=== PATIENT | female | born 1990 | race African-American/Black ===

== ENCOUNTER 2017-02-22 12:19 | Outpatient (CLI) | payer OTHER ==
[2017-02-22] MEDS ORDERED: GADOBUTROL 10 MMOL/10 ML SYRINGE IVP ONE (13:48)
--- NOTE | 2017-02-22 21:18 | MRI Preliminary Report ---
Exam: MRI Pelvis W/WO Impression: 1. Bulky, leiomyomatous uterus. Majority of fibroids are vascular demonstrating avid enhancement with largest fibroid at the cervix measuring 11.9 cm. There is associated endometrial and urinary bladder displacement. No intracavitary mass seen. 2. Normal ovaries. SITE ID: [id number]
--- NOTE | 2017-02-22 21:28 | MRI Report ---
EXAM: MRI PELVIS WITHOUT AND WITH CONTRAST EXAM DATE: 02/22/2017 02:10 PM. CLINICAL HISTORY: Leiomyoma of uterus, unspecified. COMPARISON: None. TECHNIQUE: Multiplanar, multisequence T1-weighted and fluid-sensitive sequences of the pelvis before and after administration of intravenous contrast. IV contrast: 7 mm Gadavist. Other: None. FINDINGS: Bulky enlargement of the uterus secondary to numerous fibroids. The uterus measures 20.6 x 13.4 x 12. 9 cm in the sagittal, transverse and AP dimensions. Majority of the fibroids are hypointense on T2-we ighted sequences and demonstrate prominent heterogeneous internal enhancement post gadolinium adminis tration. There is one 3.5 x 2.5 cm anterior lower uterine segment subserosal fibroid demonstrating pr edominantly cystic changes. Additional sales representative fibroids include: 1. Posterior cervical fibroid measuring 11.9 x 7.9 x 10.5 cm. 2. Exophytic right fundal 6.7 x 4.6 x 6.2 cm fibroid. 3. Right lateral intramural uterine body intramural/submucosal 4.2 x 6.1 x 3.3 cm fibroid. 4. At least four left lateral intramural/subserosal fibroids ranging in size from 1.7 to 6 cm. The endometrium is displaced anteriorly and then posteriorly towards the fundus by above fibroids jose suring 12 mm in thickness. No intracavitary mass seen. No junctional zone thickening. The right ovary measures 1.9 x 1.6 x 2.6 cm and contains a simple 1.8 cm cyst. The left ovary measure s 2.5 x 1.4 x 2.0 cm and contains several small follicles. The urinary bladder is compressed anteriorly by the cervix. No pelvic lymphadenopathy. No free fluid collections. No vaginal mass. The visualized bowel, kidneys, and skeletal structures are unremarkable. IMPRESSION: 1. Bulky, leiomyomatous uterus. Majority of fibroids are hypervascular with largest fibroid at the ce rvix measuring 11.9 cm. There is associated endometrial and urinary bladder displacement. No intracav itary mass seen. 2. Normal ovaries. Referring Provider Line: [phone] SITE ID: [id number]
== END 2017-02-22 12:20 | disposition home or self-care (01) ==
LOC: DI 12:19
PROVIDERS: ATTEND Nurse Practitioner Family
DX: D25.1 Intramural leiomyoma of uterus (principal); D25.0 Submucous leiomyoma of uterus; D26.0 Other benign neoplasm of cervix uteri
CPT/HCPCS: 72197; A9585

== ENCOUNTER 2019-10-16 07:48 | Outpatient (CLI) | payer OTHER ==
--- NOTE | 2019-10-16 11:31 | Mammography Report ---
Reason: BI LATERAL BREAST NODULES Procedure Date: 10/16/2019 Accession Number: [id number] / [id number] Procedure: BETTIE - Diagnostic Dig Bilat CPT Code: Final Report FULL RESULT: EXAM: Diagnostic Dig Bilat, Breast Unilateral Complete, Breast Unilateral Complete DATE: 10/16/2019 10:04 AM CLINICAL HISTORY: Bilateral breast nodules felt by clinician on physical examination. COMPARISON: Baseline examination. MAMMOGRAM: TECHNIQUE: (B) - Bilateral CC and MLO views were obtained. PARENCHYMAL PATTERN: (D) - The breasts demonstrate heterogeneously dense fibroglandular parenchyma bilaterally. FINDINGS: There is a dominant mass in each breast on the left 5 to 7:00 position 4 to 6 cm from the nipple and right breast 4:00 position 5 cm from the nipple. There are no suspicious calcifications or areas of distortion. BILATERAL BREAST ULTRASOUND: TECHNIQUE: Real time scanning by the store stock associate with saved static images reviewed. FINDINGS: Left breast 5:00 position 6 cm from the nipple: 1.6 x 0.6 x 1.3 cm well-circumscribed hypoechoic avascular nodule corresponding to the mammographic finding Right breast: 4:00 position 5 cm from the nipple: 1.2 x 0.9 x 0.8 cm well-circumscribed hypoechoic avascular nodule corresponding to the mammographic finding. IMPRESSION: Probably Benign. BI-RADS category 3. Probable solitary fibroadenoma in each breast. RECOMMENDATION: (6MOS) - Recommend 6 month follow-up exam. Suggest six-month follow-up ultrasound of each breast to document stability in the appearance of the presumed fibroadenomas. BI-RADS CATEGORY: (3) - Probably Benign. STANDARD QUALIFYING STATEMENTS: 1. This examination was not reviewed with the aid of Computer-Aided Detection (CAD). 2. A negative or benign imaging report should not preclude biopsy if clinically suspicious findings are present. 3. Dense breasts may obscure an underlying neoplasm. 4. This examination was reviewed with the aid of 3D breast imaging (tomosynthesis).
== END 2019-10-16 07:49 | disposition home or self-care (01) ==
LOC: DI 07:48
PROVIDERS: ATTEND Nurse Practitioner Acute Care
DX: N63.23 Unspecified lump in the left breast, lower outer quadrant (principal); N63.14 Unspecified lump in the right breast, lower inner quadrant
CPT/HCPCS: 76641; 77066

== ENCOUNTER 2020-05-07 07:50 | Outpatient (CLI) | payer OTHER ==
--- NOTE | 2020-05-10 10:34 | Ultrasound Report ---
LIMITED ULTRASOUND OF RIGHT BREAST: 05/07/2020 CLINICAL: Patient returns for a 6 month follow up of bilateral breasts. Comparison: 10/16/2019 Color flow ultrasound of the right breast 4 o'clock region was performed. Carlin scale images of the r eal-time examination were reviewed. There is a 1.1 cm x 0.9 cm x 0.7 cm oval mass with a circumscribed margin in the right breast at 4 o' clock middle depth 5 cm from the nipple. This oval mass is hypoechoic with no posterior acoustic sha dowing or enhancement. This abnormality is not significantly changed. Color flow imaging demonstrat es that there is no vascularity present. IMPRESSION: PROBABLY BENIGN The 1.1 cm x 0.9 cm x 0.7 cm oval mass in the right breast most likely is a fibroadenoma and is proba bg benign. A follow-up right ultrasound in 6 months is recommended to demonstrate stability. Findings and recommendations were conveyed to the patient during today's visit. This exam was interpreted at Station ID: [id number]. Electronically Signed By: Van Adames M.D. aty/:05/07/2020 09:48:50 Ultrasound BI-RADS: 3 Probably benign BI-RADS CATEGORY: (3) - 3 Ultrasound [id number] 6 month follow-up LATERALITY: (R)
--- NOTE | 2020-05-10 10:34 | Ultrasound Report ---
LIMITED ULTRASOUND OF LEFT BREAST: 05/07/2020 CLINICAL: Patient returns for a 6 month follow up of bilateral breasts. No prior exams were available for comparison. Color flow ultrasound of the left breast 5 o'clock region was performed. Carlin scale images of the r eal-time examination were reviewed. There is a 1.8 cm x 1.4 cm x 0.5 cm wider than tall oval mass with a circumscribed margin in the left breast at 5 o'clock middle depth 6 cm from the nipple. This oval mass is hypoechoic with no posteri or acoustic shadowing or enhancement. This abnormality is not significantly changed. Color flow isidro ging demonstrates that there is an adjacent vascularity. IMPRESSION: PROBABLY BENIGN The 1.8 cm x 1.4 cm x 0.5 cm wider than tall oval mass in the left breast most likely is a fibroadeno ma and is probably benign. A follow-up left ultrasound in 6 months is recommended to demonstrate continued stability. Findings and recommendations were conveyed to the patient during today's examination. This exam was interpreted at Station ID: [id number]. Electronically Signed By: Van Adames M.D. aty/:05/07/2020 10:00:06 Ultrasound BI-RADS: 3 Probably benign BI-RADS CATEGORY: (3) - 3 Ultrasound [id number] 6 month follow-up LATERALITY: (L)
== END 2020-05-07 07:51 | disposition home or self-care (01) ==
LOC: DI 07:50
PROVIDERS: ATTEND Nurse Practitioner Acute Care
DX: N63.13 Unspecified lump in the right breast, lower outer quadrant (principal)
CPT/HCPCS: 76642

== ENCOUNTER 2020-11-10 11:45 | Outpatient (CLI) | payer OTHER ==
--- NOTE | 2020-11-11 08:37 | Ultrasound Report ---
LIMITED ULTRASOUND OF RIGHT BREAST: 11/10/2020 CLINICAL: Patient returns for additional imaging over a suspected mass in the right breast. Comparison is made to exam dated: 05/07/2020 ultrasound - [facility]. Color flow and real-time ultrasound of the right breast 4 o'clock region were performed. Carlin scale images of the real-time examination were reviewed. There is a benign 0.8 cm x 0.6 cm x 0.3 cm oval cyst with a smooth internal wall in the right breast at 4 o'clock middle depth 5 cm from the nipple. This oval cyst is anechoic. This abnormality is dec reased in size. Color flow imaging demonstrates that there is no vascularity present. IMPRESSION: BENIGN There is no sonographic evidence of malignancy. The 0.8 cm x 0.6 cm x 0.3 cm oval cyst in the right breast is consistent with a simple cyst and is be nign. No further follow up of the right breast is warranted at this time. This exam was interpreted at Station ID: [id number]. Electronically Signed By: Diane mosley/:11/10/2020 13:46:33 Ultrasound BI-RADS: 2 Benign BI-RADS CATEGORY: (2) - 2 Unspecified - other recall n/a LATERALITY: (B)
--- NOTE | 2020-11-11 08:37 | Ultrasound Report ---
LIMITED ULTRASOUND OF LEFT BREAST: 11/10/2020 CLINICAL: Patient returns for additional imaging over a suspected mass in the left breast. Comparison is made to exams dated: 05/07/2020 ultrasound and 05/07/2020 ultrasound - [facility]. Color flow and real-time ultrasound of the left breast 5 o'clock region were performed. Carlin scale images of the real-time examination were reviewed. There is a 1.8 cm x 1.5 cm x 0.6 cm oval probable fibroadenoma with a circumscribed, minimally lobula christiano margin in the left breast at 5 o'clock middle depth 6 cm from the nipple. This abnormality is no t significantly changed. Color flow imaging demonstrates that there is no vascularity present. IMPRESSION: PROBABLY BENIGN The 1.8 cm oval mass, probale fibroadenoma in the left breast remains relatively stable and is probab ly benign. A follow-up ultrasound in 6 months is recommended to demonstrate continued stability. Findings and recommendations were conveyed to the patient at time of exam. This exam was interpreted at Station ID: [id number]. Electronically Signed By: Diane mosley/:11/10/2020 13:49:06 Ultrasound BI-RADS: 3 Probably benign BI-RADS CATEGORY: (3) - 3 Mammogram [id number] 6 month follow-up LATERALITY: (B)
== END 2020-11-10 11:46 | disposition home or self-care (01) ==
LOC: DI 11:45
DX: N63.23 Unspecified lump in the left breast, lower outer quadrant (principal); N60.01 Solitary cyst of right breast

== ENCOUNTER 2021-05-31 13:30 | Outpatient (CLI) | payer OTHER ==
--- NOTE | 2021-06-01 15:04 | Ultrasound Report ---
LIMITED ULTRASOUND OF LEFT BREAST: 05/31/2021 CLINICAL: Patient returns for 6 month followup sonographic evaluation of left breast mass. Comparison is made to exams dated: 11/10/2020 ultrasound, 05/07/2020 ultrasound, and 05/07/2020 [facility]. Color flow ultrasound of the left breast 5 o'clock region was performed. Carlin scale images of the r eal-time examination were reviewed. There is a 1.6 cm x 1.4 cm x 0.5 cm oval fibroadenoma with a circumscribed margin in the left breast at 5 o'clock middle depth 6 cm from the nipple. This abnormality is not significantly changed. IMPRESSION: PROBABLY BENIGN The 1.6 cm x 1.4 cm x 0.5 cm oval fibroadenoma in the left breast is probably benign. A follow-up ul trasound in 6 months is recommended. A follow-up left ultrasound in 6 months is recommended to demonstrate stability. This exam was interpreted at Station ID: [id number]. Electronically Signed By: Juma johnson/joao:05/31/2021 14:09:44 Ultrasound BI-RADS: 3 Probably benign BI-RADS CATEGORY: (3) - 3 Ultrasound [id number] 6 month follow-up LATERALITY: (L)
== END 2021-05-31 13:31 | disposition home or self-care (01) ==
LOC: DI 13:30
PROVIDERS: ATTEND Family Medicine
DX: R92.8 Other abnormal and inconclusive findings on diagnostic imaging of breast (principal)